=== PATIENT | male | born 2005 | race African-American/Black ===

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

== ENCOUNTER 2025-03-31 16:08 | Emergency (ER) | payer MEDICAID, SELFPAY ==
--- NOTE | ~2025-03-31 | US_ITS ---
EXAMINATION: US scrotum doppler DATE: 03/31/2025 20:54 INDICATION: Testicular pain TECHNIQUE: Sonographic evaluation of the scrotum was performed assessing grayscale appearance and col or Doppler flow. Spectral Doppler evaluation was also performed. COMPARISON: None. FINDINGS: RIGHT TESTICLE: The right testicle measures 3.6 x 1.6 x 2.7 cm. Arterial and venous flow are present. No right-sided hydrocele is present. RIGHT EPIDIDYMIS: The right epididymis is unremarkable in echogenicity and size. Prominent vasculature with Valsalva. Pre-Valsalva measurement less than 3 mm. LEFT TESTICLE: The left testicle measures 3.2 x 1.6 x 2.8 cm. Arterial and venous flow are demonstrated. No left-sided hydrocele is present. LEFT EPIDIDYMIS: The left epididymis is unremarkable in echogenicity and size Prominent vasculature with Valsalva. Pre-Valsalva measurement less than 3 mm. Within the scrotal soft tissues (within the central peritoneum) is a large complex fluid collection w ith peripheral wall vascularity measuring 4 x 3 x 3cm. IMPRESSION: Complex fluid collection within the scrotal soft tissues, in the area of clinical concern. Reviewed, dictated and finalized at location A. IMPRESSION: Complex fluid collection within the scrotal soft tissues, in the area of clinic al concern.
--- OUTSIDE RECORDS SUMMARY | 2025-03-31 16:10 | XMS_ITS | Clinical Summary ---
Author Organization [facility] Address [address] [place] [id number] Care Team Providers Care Foot Setter Name Role Phone Jaden Gandhi MD Primary Care Provider [phone] Family History Medical History Relation Comments Seizures Sister Relation Status Comments Sister Social History Tobacco Use Types Packs/Day Years Used Date Smoking Tobacco: Never Smokeless Tobacco: Never Alcohol Use Standard Drinks/Week Comments No 0 (1 standard drink = 0.6 oz pur e alcohol) AUDIT-C Answer Date Recorded Frequency of Alcohol Consumption Never 07/04/2019 Average Number of Drinks Not on file 019 Frequency of Binge Drinking Not on file 10/2018 Sex and Gender Information Value Date Recorded Sex Assigned at Not on file Legal Sex Male 6:08 PM ENVIRONMENTAL PLANNING ENGINEER Gender Identity Not on file Sexual Orientation Not on file Last Filed Vital Signs Vital Sign Reading Time Taken Comments Blood Pressure 113/53 07/04/2019 6:14 PM ENVIRONMENTAL PLANNING ENGINEER Pulse 74 07/04/2019 6:14 PM ENVIRONMENTAL PLANNING ENGINEER Temperature 36.6 C (97.8 F) 07/04/2019 6:14 PM ENVIRONMENTAL PLANNING ENGINEER Respiratory Rate 18 07/04/2019 6:14 PM ENVIRONMENTAL PLANNING ENGINEER Oxygen Saturation 99% 07/04/2019 6:14 PM ENVIRONMENTAL PLANNING ENGINEER Inhaled Oxygen Concentration - - Weight 67.6 kg (149 lb) 07/04/2019 6:14 PM ENVIRONMENTAL PLANNING ENGINEER Height 169 cm (5' 6.54) 07/04/2019 6:14 PM ENVIRONMENTAL PLANNING ENGINEER Body Mass Index 23.66 07/04/2019 6:14 PM ENVIRONMENTAL PLANNING ENGINEER Body Mass Index Percentile 89.51% 07/04/2019 6:1 4 PM ENVIRONMENTAL PLANNING ENGINEER Growth Chart: CDC (Boys, 2-2 0 Years) Plan of Treatment Health Maintenance Due Date Last Done Comments Annual Physical 2008 Meningococcal B Vaccine (1 of 2 - Standard) 2021 Hepatitis C 2023 COVID-19 Vaccine (1 - 2023-25 season) 2024 DTaP, Tdap and Td Vaccines (2 - Tdap) 2024 11/24/2006 Hepatitis B Vaccines (1 of 3 - 19+ 3-dose series) 2024 Pneumococcal Vaccine: Pediatrics (0 to 5 Years) and At-Risk Patients (6 to 49 Years) Completed 11/24/2006, 02/26/2006, 2005, Additional history exists HPV Vaccines Completed 03/05/2017, 03/22/2016 Meningococcal Vaccine Aged Out 03/05/2017 No pk robert eligible based on patient's age to complete this topic RSV Immunizations Under 20 Months Aged Out No longer eligible based on patient's age to complete this topic Insurance [place] Care Teams Foot Setter Relationship Specialty Start Date End Date Jaden Gandhi MD [address] [place] [address] [phone] PCP - General PEDIATRICS 07/04/19
--- OUTSIDE RECORDS SUMMARY | 2025-03-31 16:10 | XMS_ITS | Clinical Summary ---
Author Organization [facility] Address [address] [place] [address] Care Team Providers Care Finisher Hand Name Role Phone Hola Todd MD Unavailable Unavailable Feliciano Blanchard MD Primary Care Provider [phone] Source Comments [facility],non-owned Affiliates and Associated Physician Practices is amultiple site organization consisting of ambulatory clinics and hospital sitesin [place], [place], [place] and [place]. This disclosure is being madepursuant to the Care Everywhere program and may not contain all information available regarding this patient. Last updated 18.[facility] Allergies No known active allergies Medications * Be aware that medications may not be up to date on this document. Alwaysverify current medications with the patient. albuterol HFA (PROVENTIL;VENT DIMITRI;PROAIR) 108 (90 BASE) MCG/ACT inhaler Inhale 4 Puffs by mouth every 6 hours as needed for Shortness of Breath or Wheezing. 3 Inhaler 3 4 Active Additional Information Patient not taking.Reported on 10/16/2022 ibuprofen (MOTRIN) 200 MG tablet Take by mouth every 6 hours as needed for Pain Active fluticasone propionate (FLONASE) 50 MCG/ACT nasal spray [place] 2 sprays into each nostril once daily Aim at outer edges inside nostrils. 1 g 5 0 Active Additional Information Patient not taking.Reported on 10/16/2022 sodium chloride-sodium bicarb 2300-700mg (NEILMED SINUS RINSE) 2300-700 MG Kit [place] 1 kit into each nostril as directed 30 kit 0 Active Additional Information Patient not taking.Reported on 10/16/2022 montelukast (SINGULAIR) 5 MG chew tablet Take 1 tablet by mouth once daily 30 tablet 5 0 Active Additional Information Patient not taking.Reported on 10/16/2022 vitamin D, ergocalciferol, (DRISDOL) 1.25 MG (50737 UT) capsule Take 1 capsule by mouth every 7 days 8 capsule 0 Active Additional Information Patient not taking.Reported on 10/16/2022 ferrous sulfate 325 (65 FE) MG tablet Take 1 tablet by mouth 2 times daily with morning and evening meal Take w/ vitamin C such as OJ. Miralax or generic for tummy upset. 60 tablet 5 0 Active Additional Information Patient not taking.Reported on 10/16/2022 Active Problems Problem Noted Date Diagnosed Date Closed nondisplaced fracture of proximal phalanx of right thumb with routine healing 07/06/2019 Closed displaced fracture of proximal phalanx of right thumb 07/06/2019 Umbilical hernia 12/12/2009 Family History Medical History Relation Name Comments Seizures Sister Relation Name Status Comments Sister Social History Tobacco Use Types Packs/Day Years Used Date Smoking Tobacco: Never Passive Smoke Exposure: Never Smokeless Tobacco: Never Tobacco Cessation:Counseling Given: Not Answered Alcohol Use Standard Drinks/Week Comments Never 0 (1 standard drink = 0.6 oz pur e alcohol) Sex and Gender Information Value Date Recorded Sex Assigned at Not on file Legal Sex Male 6:37 AM STRAIGHTENING MACHINE FEEDER Gender Identity Not on file Sexual Orientation Not on file Last Filed Vital Signs Vital Sign Reading Time Taken Comments Blood Pressure 122/71 10/16/2022 12:40 PM STRAIGHTENING MACHINE FEEDER Pulse 86 10/16/2022 12:40 PM STRAIGHTENING MACHINE FEEDER Temperature 37.2 C (99 F) 10/16/2022 12:40 PM STRAIGHTENING MACHINE FEEDER Respiratory Rate 18 10/16/2022 12:40 PM STRAIGHTENING MACHINE FEEDER Oxygen Saturation 96% 10/16/2022 12:40 PM STRAIGHTENING MACHINE FEEDER Inhaled Oxygen Concentration 100% 01/11/2010 1 0:49 AM CDT Weight 80.3 kg (177 lb 0.5 oz) 10/16/2022 9:53 A M STRAIGHTENING MACHINE FEEDER Height 172.7 cm (5' 7.99) 08/09/2020 2:56 PM CS T Body Mass Index - - Plan of Treatment Health Maintenance Due Date Last Done Comments HIV SCREENING 2020 HPV VACCINE (1 - Male 3-dose series) 2020 MENINGOCOCCAL (Group B) VACC INE SHARED DECISION-MAKING (1 of 2 - Standard) 2021 HEPATITIS C SCREENING 07/05/2023 COVID-19 VACCINE (1 - 2023-2 5 season) 2024 DTAP/TDAP/TD VACCINES (1 - Tdap) 2024 HEPATITIS B VACCINE (1 of 3 - 19+ 3-dose series) 2024 DEPRESSION SCREENING 09/01/2024 INFLUENZA VACCINE (#1) 2025 07/21/2019 ZOSTER VACCINE (1 of 2) 2055 HIB VACCINE Aged Out No longer eligi ble based on patient's age to complete this topic MENINGOCOCCAL GROUPS A/C/Y/W VACCINE Aged Out No longer eligible b ased on patient's age to complete this topic PNEUMOCOCCAL VACCINE Aged Out No long er eligible based on patient's age to complete this topic Insurance [facility] Care Teams Finisher Hand Relationship Specialty Start Date End Date Feliciano Blanchard MD [address] [place] [address] PCP - General Pediatrics 01/22/24 Hola Todd MD Plastic and Reconstructive Surgery 07/06/19
[2025-03-31 16:12] VITALS: BP 126/66; PULSE 110; RESP 16; TEMP 36.4; O2SAT 99
--- OUTSIDE RECORDS SUMMARY | 2025-03-31 17:16 | XMS_ITS | Clinical Summary ---
Author Organization [facility] Address [address] [place] [address] Care Team Providers Care Laborer Orchard Name Role Phone Jaden Gandhi MD Primary Care Provider Family History Medical History Relation Comments Seizures [...] on file Legal Sex Male 6:08 PM MODEL MAKER PLASTER Gender Identity Not on file Sexual Orientation Not on file Last Filed Vital Signs Vital Sign Reading Time Taken Comments Blood Pressure 113/53 07/04/2019 6:14 PM MODEL MAKER PLASTER Pulse 74 07/04/2019 6:14 PM MODEL MAKER PLASTER Temperature 36.6 C (97.8 F) 07/04/2019 6:14 PM MODEL MAKER PLASTER Respiratory Rate 18 07/04/2019 6:14 PM MODEL MAKER PLASTER Oxygen Saturation 99% 07/04/2019 6:14 PM MODEL MAKER PLASTER Inhaled Oxygen Concentration - - Weight 67.6 kg (149 lb) 07/04/2019 6:14 PM MODEL MAKER PLASTER Height 169 cm (5' 6.54) 07/04/2019 6:14 PM MODEL MAKER PLASTER Body Mass Index 23.66 07/04/2019 6:14 PM MODEL MAKER PLASTER Body Mass Index Percentile 89.51% 07/04/2019 6:1 4 PM MODEL MAKER PLASTER Growth Chart: CDC (Boys, 2-2 0 Years) [...] patient's age to complete this topic Insurance [employer] Care Teams Laborer Orchard Relationship Specialty Start Date End Date Jaden Gandhi MD [address] [place] [address] [phone] PCP - General PEDIATRICS 07/04/19
--- OUTSIDE RECORDS SUMMARY | 2025-03-31 17:16 | XMS_ITS | Clinical Summary ---
Author Organization [facility] Address [address] [facility] [place] [address] Care Team Providers Care Counsellors Name Role Phone Hola Todd MD Unavailable Unavailable Feliciano Blanchard MD Primary Care Provider [phone] Source Comments [facility],non-owned Affiliates and Associated Physician Practices is amultiple site organization consisting of ambulatory clinics and hospital sitesin [place], [place], [place] and [place]. This disclosure is being madepursuant to the Care Everywhere program and may not contain all information available regarding this patient. Last updated 18.[facility] Allergies No known active allergies Medications * [...] fluticasone propionate (FLONASE) 50 MCG/ACT nasal spray [place] 2 sprays into each nostril once daily Aim at outer edges inside nostrils. 1 g 5 0 Active Additional Information Patient not taking.Reported on 10/16/2022 sodium chloride-sodium bicarb 2300-700mg (NEILMED SINUS RINSE) 2300-700 MG Kit [place] 1 kit into each nostril as directed 30 kit 0 Active Additional Information Patient not taking.Reported on 10/16/2022 montelukast (SINGULAIR) 5 MG chew tablet Take 1 tablet by mouth once daily 30 tablet 5 0 Active Additional Information Patient not taking.Reported on 10/16/2022 vitamin D, ergocalciferol, (DRISDOL) 1.25 MG (61709 UT) capsule Take 1 capsule by mouth [...] on file Legal Sex Male 6:37 AM MANAGER OPERATIONAL Gender Identity Not on file Sexual Orientation Not on file Last Filed Vital Signs Vital Sign Reading Time Taken Comments Blood Pressure 122/71 10/16/2022 12:40 PM MANAGER OPERATIONAL Pulse 86 10/16/2022 12:40 PM MANAGER OPERATIONAL Temperature 37.2 C (99 F) 10/16/2022 12:40 PM MANAGER OPERATIONAL Respiratory Rate 18 10/16/2022 12:40 PM MANAGER OPERATIONAL Oxygen Saturation 96% 10/16/2022 12:40 PM MANAGER OPERATIONAL Inhaled Oxygen Concentration 100% 01/11/2010 1 0:49 AM CDT Weight 80.3 kg (177 lb 0.5 oz) 10/16/2022 9:53 A M MANAGER OPERATIONAL Height 172.7 cm (5' 7.99) 08/09/2020 2:56 [...] patient's age to complete this topic Insurance [facility] Care Teams Counsellors Relationship Specialty Start Date End Date Feliciano Blanchard MD [address] [place] [address] PCP - General Pediatrics 01/22/24 Hola Todd MD Plastic and Reconstructive Surgery 07/06/19
[2025-03-31 17:33] VITALS: BP 123/88; PULSE 100; RESP 17; O2SAT 97
--- NOTE | 2025-03-31 17:56 | ED.SKABFB ---
HPI - Skin/Abscess/Foreign Bdy General Chief complaint: Skin/Abscess/Foreign Body Stated complaint: rectal abcsess? Time Seen by Provider: 03/31/25 17:23 Source: patient Mode of arrival: ambulatory Limitations: no limitations History of Present Illness HPI narrative: Patient is a 19-year-old male who presents the ED with concern for a scrotal abscess. Patient reports he has had an abscess to his posterior scrotum for the past 1 week. Related Data Allergies Allergy/AdvReac Type Severity Reaction Status Date / Time No Known Allergies Allergy Verified 03/31/25 16:10 [facility] Past Medical History Medical History No pertinent past medical history Surgical History Surgical History No history of previous surgery Family History Family History Other No significant family history Social History Social History (Updated 05/13/24 @ 09:54 by Mikaela Dumont PA-C) Smoking status: Never smoker Alcohol intake: never Substance use: current Substance use type: marijuana Living arrangements: with family Occupation/Education: student Gender identity (if verbalized by the patient): Male Course Vital Signs Vital signs: Vital Signs Temperature 97.5 F L 03/31/25 16:12 Pulse Rate 110 H 03/31/25 16:12 Respiratory Rate 16 03/31/25 16:12 Blood Pressure 126/66 03/31/25 16:12 Pulse Oximetry 99 03/31/25 16:12 Temperature 97.5 F L 03/31/25 16:12 Pulse Rate 100 03/31/25 17:33 Respiratory Rate 17 03/31/25 17:33 Blood Pressure 123/88 03/31/25 17:33 Pulse Oximetry 97 03/31/25 17:33 Discharge Plan Discharge Patient Language: Georgian Prescriptions: No Action doxycycline monohydrate 100 mg tablet 100 mg PO BID 7 Days Qty: 14 0RF Follow-up/Referrals: PHYSICIAN,PIG MACHINE OPERATOR HELPER [Primary Care Provider] -
--- NOTE | 2025-03-31 17:59 | ED.SKABFB ---
HPI - Skin/Abscess/Foreign Bdy General Chief complaint: Skin/Abscess/Foreign Body Stated complaint: rectal abcsess? Time Seen by Provider: 03/31/25 17:23 Source: patient Mode of arrival: ambulatory Limitations: no limitations History of Present Illness HPI narrative: Patient is a 19-year-old male who presents the ED with concern for a scrotal abscess. Patient reports he has had an abscess to his posterior scrotum for the past 1 week. States it has been building up. He has been trying warm compresses and a salve without improvement. Reports pain throughout his scrotum. Denies difficulty urinating or having bowel movement. Denies concern for STDs. Denies fevers. Denies history of diabetes. Has had previous abscess, but not in a similar location. Related Data Allergies Allergy/AdvReac Type Severity Reaction Status Date / Time No Known Allergies Allergy Verified 03/31/25 16:10 Review of Systems Review of Systems: All systems reviewed & are unremarkable except as noted in HPI. All systems reviewed & are unremarkable except as noted in HPI and below PMFSH Past Medical History Medical History No pertinent past medical history Surgical History Surgical History No history of previous surgery Family History Family History Other No significant family history Social History Social History Smoking status: Never smoker Alcohol intake: never Substance use: current Substance use type: marijuana Living arrangements: with family Occupation/Education: student Gender identity (if verbalized by the patient): Male Exam Narrative: GENERAL: Well appearing, well-nourished, non-toxic, in no acute distress. HEAD: Normocephalic, atraumatic. RESPIRATORY: Airway patent, respirations nonlabored. Clear to auscultation bilaterally, no rales, rhonchi, wheezing. CARDIOVASCULAR: Regular rate and rhythm GENITAL: Small approx 3cm fluctuant region to posterior scrotum, near perineum. Surrounding induration extending slightly into perineal region. Active purulent drainage from pinpoint hole in fluctuant region. Focal TTP. No necrosis, blistering, severe spreading erythema. No significant swelling of testicles bilaterally. MUSCULOSKELETAL: Moves all extremities. No gross deformities. SKIN: Warm, dry, normal color. NEURO: A&O X3. Speech clear. No ataxic movements. PSYCHIATRIC: Appropriate mood and affect. Normal interaction. Course Vital Signs Vital signs: Vital Signs Temperature 97.5 F L 03/31/25 16:12 Pulse Rate 110 H 03/31/25 16:12 Respiratory Rate 16 03/31/25 16:12 Blood Pressure 126/66 03/31/25 16:12 Pulse Oximetry 99 03/31/25 16:12 Temperature 97.5 F L 03/31/25 16:12 Pulse Rate 87 03/31/25 22:17 Respiratory Rate 16 03/31/25 22:17 Blood Pressure 116/70 03/31/25 22:17 Pulse Oximetry 99 03/31/25 22:17 Procedures Abscess I/D scrotum: Date of Incision: 03/31/25 Time of Incision: 22:00 Sedation/analgesia: none Local Anesthetic: lidocaine 1% Amount of anesthesia used (mL): 8 Technique: incised with #11 blade and probed loculations Amount of fluid expressed (mL): 5 Irrigation: Yes Packing used?: none I&D Results: Pus and Blood Complications: other (none) MDM - Skin/Abscess/Foreign Bdy MDM Narrative Medical decision making narrative: Exam appears consistent with simple abscess of scrotum. It is actively draining from a pinpoint drainage hole. Wound culture was obtained. No evidence of necrotic skin infection or Nerissa's gangrene. Vital signs are stable. No evidence of overwhelming systemic infection. Scrotal ultrasound was obtained. Does show large complex fluid collection, good blood flow to both testes, no evidence of torsion. I&D was performed to open abscess to allow for appropriate drainage. Patient tolerated this well. Patient will be started on Bactrim. Advised to continue warm compresses/Sitz baths. Advised will need follow-up with urology. Discussed case with Dr. Villeda, urology, agrees w/ plan, OK with outpatient f/u. Patient given strict return precautions. He agrees with plan. Discharged in stable condition. Medical Records Attestation: I reviewed the patient's medical records. Imaging Data Attestation: I personally reviewed and interpreted this imaging study as follows: Radiologist's impression: US SCROTUM: Impression: The right testicle measures 3.6 x 1.6 x 2.7 cm, 8.1 mL. Normal echotexture and normal Doppler blood flow. The right epididymis appears within normal limits. The left testicle measures 3.2 x 1.6 x 2.8 cm, 7.3 mL. Normal echotexture and normal Doppler blood flow. The left epididymis is within normal limits. There is an oval complex heterogeneous area in the posterior scrotum measuring approximately 2.2 x 3.5 cm suspicious for abscess versus phlegmon. No incidental findings. Discharge Plan Discharge Clinical Impression: Scrotal abscess Patient Disposition: Home Condition: Stable Instructions: Antibiotic Form, Abscess (ED), Sitz Bath (DC), Scrotal Pain (ED) Additional Instructions: Take antibiotics as prescribed for scrotal abscess. Continue warm compresses and warm Sitz baths to help with inflammation. Continue Tylenol/ibuprofen as needed for pain. Follow-up with urology for further evaluation. Call office tomorrow to make follow-up appointment. Return to the ED if you experience worsening or severe symptoms, severe pain, unable to keep down food, fevers, or any other symptoms of concern. Patient Language: Uzbek Prescriptions: New sulfamethoxazole-trimethoprim [Bactrim DS] 800-160 mg tablet 1 tablet PO Q12H 7 Days Qty: 14 0RF No Action doxycycline monohydrate 100 mg tablet 100 mg PO BID 7 Days Qty: 14 0RF Follow-up/Referrals: Glen Villeda MD [Physician] - (UROLOGY) PHYSICIAN,MECHANICAL SERVICE REPRESENTATIVE [Primary Care Provider] - Time of Disposition: 22:07
[2025-03-31] MEDS: SULFAMETHOXAZOLE/TRIMETHOPRIM 800/160 MG DS TABLET 1 TAB PO (18:09)
[2025-03-31 22:17] VITALS: BP 116/70; PULSE 87; RESP 16; O2SAT 99
== END 2025-03-31 22:18 | disposition home or self-care (01) ==
PROVIDERS: Emergency Provider Physician Assistant
DX: N49.2 Inflammatory disorders of scrotum (principal)
CPT/HCPCS: 10060; 55100; 76870; 93976; 99283; 99284; A9270; J2003

== ENCOUNTER 2025-04-30 06:15 | Emergency (ER) | payer OTHER, SELFPAY ==
--- OUTSIDE RECORDS SUMMARY | 2025-04-30 06:17 | XMS_ITS | Clinical Summary ---
Author Organization [facility] Address [address] [place] [address] Care Team Providers Care Door Person Name Role Phone Hola Todd MD Unavailable Unavailable Feliciano Blanchard MD Primary Care Provider [phone] [facility],non-owned Affiliates and Associated Physician Practices is amultiple site organization consisting of ambulatory clinics and hospital sitesin [place], [place], [place] and [place]. This disclosure is being madepursuant to the Care Everywhere program and may not contain all information available regarding this patient. Last updated 18.[facility] Allergies No known active allergies Medications * [...] fluticasone propionate (FLONASE) 50 MCG/ACT nasal spray [place] 2 sprays into each nostril once daily Aim at outer edges inside nostrils. 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 Gender Identity Not on file Sexual Orientation Not on file Last Filed Vital Signs Vital Sign Reading Time Taken Comments Blood Pressure 122/71 10/16/2022 12:40 PM RETAIL SHIFT LEADER Pulse 86 10/16/2022 12:40 PM RETAIL SHIFT LEADER Temperature 37.2 C (99 F) 10/16/2022 12:40 PM RETAIL SHIFT LEADER Respiratory Rate 18 10/16/2022 12:40 PM RETAIL SHIFT LEADER Oxygen Saturation 96% 10/16/2022 12:40 PM RETAIL SHIFT LEADER Inhaled Oxygen Concentration 100% 01/11/2010 1 0:49 AM CDT Weight 80.3 kg (177 lb 0.5 oz) 10/16/2022 9:53 A M RETAIL SHIFT LEADER Height 172.7 cm (5' 7.99) 08/09/2020 2:56 [...] [facility] Care Teams Door Person Relationship Specialty Start Date End Date Feliciano Blanchard MD [address] [place] [address] PCP - General Pediatrics 01/22/24 Hola Todd MD Plastic and Reconstructive Surgery 07/06/19
[2025-04-30 06:19] VITALS: BP 127/78; PULSE 65; RESP 18; TEMP 36.5; O2SAT 99
--- NOTE | 2025-04-30 07:17 | ED_ITS ---
HPI - General Adult General Chief complaint: Wound/Laceration Stated complaint: abscess Time Seen by Provider: 04/30/25 06:56 History of Present Illness HPI narrative: 19-year-old male present to the emergency department for evaluation for a evolving abscess/cellulitis on his right groin. Patient does have a prior history of abscess approximately 1 month ago. Patient states this current wound started a few days ago and has been worsening. Patient states he is not diabetic. Patient states he does shave the area. Related Data Allergies Allergy/AdvReac Type Severity Reaction Status Date / Time No Known Allergies Allergy Verified 04/30/25 06:23 Review of Systems Review of Systems: All systems reviewed & are unremarkable except as noted in HPI and below PMFSH Past Medical History Medical History No pertinent past medical history Surgical History Surgical History No history of previous surgery Family History Family History Other No significant family history Social History Social History Smoking status: Never smoker Alcohol intake: never Substance use: current Substance use type: marijuana Living arrangements: with family Occupation/Education: student Gender identity (if verbalized by the patient): Male Exam Narrative: APPEARANCE: Well appearing, no pain, no distress, well-nourished. HEAD: normocephalic, atraumatic. EYES: PERRLA/EOMI, conjunctivae clear. NOSE: Normal no drainage EARS:TMS clear with good light reflex. THROAT: Pharynx clear, no exudate. NECK: Supple. No adenopathy, no masses. RESPIRATORY: Airway patent, respirations nonlabored. Clear to auscultation bilaterally, no rales, rhonchi, wheezing. CARDIOVASCULAR: Regular rate and rhythm without murmurs rubs or gallops. ABDOMINAL: Soft, nontender, nondistended, normal bowel sounds MUSCULOSKELETAL: Moves all extremities. Strength/ROM intact, No edema, No calf tenderness. NEURO: Alert. Cranial nerves II through XII intact. Good gait. Good coordination SKIN: Warm, dry. Normal Color PSYCHIATRIC: Normal affect/mood. Course Vital Signs Vital signs: Vital Signs Temperature 97.7 F 04/30/25 06:19 Pulse Rate 65 04/30/25 06:19 Respiratory Rate 18 04/30/25 06:19 Blood Pressure 127/78 04/30/25 06:19 Pulse Oximetry 99 04/30/25 06:19 Oxygen Delivery Room Air 04/30/25 06:19 Temperature 97.7 F 04/30/25 06:19 Pulse Rate 63 04/30/25 07:59 Respiratory Rate 18 04/30/25 07:59 Blood Pressure 126/86 04/30/25 07:59 Pulse Oximetry 100 04/30/25 07:59 Oxygen Delivery Room Air 04/30/25 06:19 Medical Decision Making Vital Signs Vital Signs: Vital Signs Temperature 97.7 F 04/30/25 06:19 Pulse Rate 65 04/30/25 06:19 Respiratory Rate 18 04/30/25 06:19 Blood Pressure 127/78 04/30/25 06:19 Pulse Oximetry 99 04/30/25 06:19 Oxygen Delivery Room Air 04/30/25 06:19 Temperature 97.7 F 04/30/25 06:19 Pulse Rate 63 04/30/25 07:59 Respiratory Rate 18 04/30/25 07:59 Blood Pressure 126/86 04/30/25 07:59 Pulse Oximetry 100 04/30/25 07:59 Oxygen Delivery Room Air 04/30/25 06:19 Discharge Plan Discharge Clinical Impression: Cellulitis and abscess of leg Patient Disposition: Home Condition: Stable Instructions: Antibiotic Form, Abscess (ED) Additional Instructions: Continue antibiotic as directed until completed. Scheduled ibuprofen for pain control, 600 mg 3 times a day for ibuprofen. Replace Tylenol with [place] for additional pain control. Do not take Tylenol and [place] at the same time as both do contain acetaminophen. Have close follow-up with your primary care physician. Patient Language: Mohawk Prescriptions: New hydrocodone-acetaminophen 5-325 mg tablet 1 tablet PO Q12H PRN (Reason: pain) Qty: 14 0RF clindamycin HCl [Cleocin HCl] 300 mg capsule 300 mg PO Q6H 7 Days Qty: 28 0RF Follow-up/Referrals: PHYSICIAN,[facility] [Primary Care Provider, Internal Medicine]
[2025-04-30] MEDS: HYDROcodone/acetaminophen (*CRX) 7.5-325 MG TABLET 1 TAB PO (07:22)
[2025-04-30] MEDS: CLINDAMYCIN HCL 150 MG CAP 300 MG PO (07:22)
[2025-04-30] MEDS: KETOROLAC 30 MG/ML VIAL (*BKC) IM (07:23)
--- OUTSIDE RECORDS SUMMARY | 2025-04-30 07:23 | XMS_ITS | Clinical Summary ---
Author Organization [facility] Address [address] [place] [address] Care Team Providers Care Pie Icer Machine Name Role Phone Hola Todd MD Unavailable Unavailable Feliciano Blanchard MD Primary Care Provider [phone] Source Comments [facility],non-owned Affiliates and Associated Physician Practices is amultiple site organization consisting of ambulatory clinics and hospital sitesin [place], [place], [place] and [place]. This disclosure is being madepursuant to the Care Everywhere program and may not contain all information available regarding this patient. Last updated 18.[facility] Allergies No known active allergies Medications * [...] fluticasone propionate (FLONASE) 50 MCG/ACT nasal spray [place] 2 sprays into each nostril once daily Aim at outer edges inside nostrils. 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 Gender Identity Not on file Sexual Orientation Not on file Last Filed Vital Signs Vital Sign Reading Time Taken Comments Blood Pressure 122/71 10/16/2022 12:40 PM BELT MOLDER Pulse 86 10/16/2022 12:40 PM BELT MOLDER Temperature 37.2 C (99 F) 10/16/2022 12:40 PM BELT MOLDER Respiratory Rate 18 10/16/2022 12:40 PM BELT MOLDER Oxygen Saturation 96% 10/16/2022 12:40 PM BELT MOLDER Inhaled Oxygen Concentration 100% 01/11/2010 1 0:49 AM CDT Weight 80.3 kg (177 lb 0.5 oz) 10/16/2022 9:53 A M BELT MOLDER Height 172.7 cm (5' 7.99) 08/09/2020 2:56 [...] patient's age to complete this topic Insurance [facility] Care Teams Pie Icer Machine Relationship Specialty Start Date End Date Feliciano Blanchard MD [address] [place] [address] PCP - General Pediatrics 01/22/24 Hola Todd MD Plastic and Reconstructive Surgery 07/06/19
[2025-04-30 07:59] VITALS: BP 126/86; PULSE 63; RESP 18; O2SAT 100
== END 2025-04-30 08:01 | disposition home or self-care (01) ==
PROVIDERS: Emergency Provider Emergency Medicine
DX: L02.214 Cutaneous abscess of groin (principal); L03.314 Cellulitis of groin
CPT/HCPCS: 96372; 99283; A9270; J1885